=== PATIENT | male | born 1950 | race Caucasian/White ===

== ENCOUNTER 2021-11-29 09:23 | Outpatient (CLI) | payer MEDICARE | END 2021-11-29 09:24 | disposition home or self-care (01) | LOC: ULT 09:23 | PROVIDERS: ATTEND Physician Assistant Medical | DX: Z09 Encounter for follow-up examination after completed treatment for conditions other than malignant neoplasm (principal); K75.81 Nonalcoholic steatohepatitis (NASH); K21.00 Gastro-esophageal reflux disease with esophagitis, without bleeding; K82.4 Cholesterolosis of gallbladder; Z86.010 Personal history of colon polyps | CPT/HCPCS: 76705 ==

== ENCOUNTER 2022-01-11 10:57 | Outpatient (CLI) | payer MEDICARE ==
[2022-01-11 12:46] LABS: #Eosinphils 0.2 10x3/uL (0.0-0.5); #Monocytes 0.8 10x3/uL (0.0-1.1); #Neutrophils 7.7 10x3/uL (1.5-8.4); %Basophils 0.3 % (0.0-2.0); %Eosinophils 1.7 % (0.0-6.0); %Lymphocytes 23.6 % (18.0-47.0); %Monocytes 6.9 % (0.0-10.0); %Neutrophils 67.2 % (40.0-75.0); Hemoglobin 17.8 g/dL (13.5-17.5); Mean Corpuscular Hemoglobin 30.7 pg (27.0-33.0); Mean Corpuscular Volume 90.2 fl (81.2-95.1); Mean Platelet Volume 12.7 fl (7.4-10.4); Platelet Count 219 10x3/uL (150-450); RBC Distribution Width 13.1 % (11.5-14.5); White Blood Cell (WBC) Count 11.5 10x3/uL (3.5-10.5)
[2022-01-11 13:21] LABS: ALT (SGPT) 50 U/L (8-55); AST (SGOT) 33 U/L (5-34); Albumin 4.6 g/dL (3.4-4.8); Alkaline Phosphatase 93 U/L (40-110); Anion Gap 19 mmol/L (10-20); BUN (Urea Nitrogen) 23 mg/dL (8.4-25.7); Bilirubin, Direct 0.2 mg/dL (0.1-0.3); Bilirubin, Total 0.6 mg/dL (0.2-1.2); Calc. Creatinine Clearance 0 mL/min (70-130); Calcium 9.6 mg/dL (7.8-10.44); Carbon Dioxide 24 mmol/L (23-31); Chloride 100 mmol/L (98-107); Estimated GFR 92; Globulin 2.6 g/dL (2.4-3.5); Glucose 216 mg/dL (83-110); Protein, Total 7.2 g/dL (5.8-8.1); Sodium 139 mmol/L (136-145)
== END 2022-01-11 10:58 | disposition home or self-care (01) ==
LOC: LABBT 10:57
PROVIDERS: ATTEND Surgery
DX: Z01.818 Encounter for other preprocedural examination (principal); K82.8 Other specified diseases of gallbladder
CPT/HCPCS: 80053; 80076; 85025; 93005; 93010

== ENCOUNTER 2022-01-16 05:53 | Day surgery (SDC) | payer MEDICARE ==
[2022-01-12 16:09] VITALS: BMI 29.0
[2022-01-16] MEDS ORDERED: Lidocaine 1% MPF 2 ML VIAL ONE (06:20)
[2022-01-16] MEDS ORDERED: Sodium Chloride 0.9% 100 ML ONE (06:20)
[2022-01-16] MEDS ORDERED: cefOXitin 2 GM VIAL ONE (06:20)
[2022-01-16] MEDS ORDERED: Bupivacaine 0.25% HCL 30 ML VIAL ONE (06:31)
[2022-01-16] MEDS ORDERED: EPINEPHrine 1 MG/ML AMP ONE (06:31)
[2022-01-16] MEDS ORDERED: fentaNYL Citrate/PF 100 MCG/2 ML SYRINGE ONE (07:12)
[2022-01-16] MEDS ORDERED: Glycopyrrolate 0.2 MG/ML 5 ML SYRINGE ONE (07:37)
[2022-01-16] MEDS ORDERED: PROPOFOL 200 MG/20 ML VIAL ONE (07:37)
[2022-01-16] MEDS ORDERED: Esmolol 100 MG/10 ML VIAL ONE (07:37)
[2022-01-16] MEDS ORDERED: NEOSTIGMINE 3 MG/3 ML SYR 3 MG/3 ML SYRINGE ONE (07:37)
[2022-01-16] MEDS ORDERED: Dexamethasone 20 MG/5 ML VIAL ONE (07:37)
[2022-01-16] MEDS ORDERED: Ketorolac Tromethamine 30 MG/ML VIAL ONE (07:37)
[2022-01-16] MEDS ORDERED: Rocuronium Bromide 10 MG/ML (10ML VIAL) ONE (07:37)
[2022-01-16] MEDS ORDERED: Ondansetron PF 4 MG/2 ML Vial ONE (07:37)
[2022-01-16] MEDS ORDERED: HYDROcodone/Acetaminophen 5/325 mg Tablet ONE (10:07)
== END 2022-01-16 11:25 | disposition home or self-care (01) ==
LOC: SDC 05:53
PROVIDERS: ATTEND Surgery
PROC: 0FT44ZZ Resection of Gallbladder, Percutaneous Endoscopic Approach (ICD-10-PCS; principal; 2022-01-16)
DX: K81.2 Acute cholecystitis with chronic cholecystitis (principal); I10 Essential (primary) hypertension; G47.30 Sleep apnea, unspecified; K76.0 Fatty (change of) liver, not elsewhere classified; E78.00 Pure hypercholesterolemia, unspecified; E11.9 Type 2 diabetes mellitus without complications; K21.00 Gastro-esophageal reflux disease with esophagitis, without bleeding; K44.9 Diaphragmatic hernia without obstruction or gangrene; Z79.84 Long term (current) use of oral hypoglycemic drugs; Z79.85 Long-term (current) use of injectable non-insulin antidiabetic drugs; Z79.899 Other long term (current) drug therapy
CPT/HCPCS: 88304; C1713; J0171; J0694; J1100; J1885; J2405; J2704; J3490; S0020